=== PATIENT | female | born 1950 | race Two or more races ===

== ENCOUNTER 2020-06-27 05:00 | Day surgery (SDC) | payer OTHER ==
[~2020-06-27 05:00] MED LIST: ANASTROZOLE1 MG PO; CRESTOR10 MG PO; NOXIFOL-D32500 UNIT PO
[2020-06-27] MEDS ORDERED: PERCOCET 5-3251 EACH PO (09:40)
== END 2020-06-27 11:56 | disposition home or self-care (01) ==
LOC: CIR.AMB 05:00
PROVIDERS: ATTEND Surgery
DX: D35.1 Benign neoplasm of parathyroid gland (principal); Z20.822 Contact with and (suspected) exposure to COVID-19